=== PATIENT | female | born 1945 | race Caucasian/White ===

== ENCOUNTER 2024-05-23 21:02 | Emergency (ER) | payer MEDICARE, OTHER ==
[2024-05-23] VITALS (8 sets, daily range): BP systolic 155–225; BP diastolic 85–115
[2024-05-23] MEDS ORDERED: HALOPERIDOL LACTATE 5 MG/ML SDV IV ONE (21:30)
[2024-05-23] MEDS ORDERED: SODIUM CHLORIDE 0.9% 1,000 ML IV ONE (21:30)
[2024-05-23 21:33] LABS: BASO% 0.6 % (0-3); EOS% 1.1 % (0-8); HEMATOCRIT 43.8 % (37.0-47.0); HEMOGLOBIN 14.8 g/dl (12.0-16.0); MEAN CELL VOLUME 95.2 fL CALC (80.0-100.0); MEAN CORPUSCULAR HGB 32.2 pG CALC (26.0-32.0); MEAN CORPUSCULAR HGB CONC 33.8 g/dL CAL (32.0-36.0); MONO% 9.1 % (2-13); NEUT# 2.59 thou/uL (2.00-7.15); NEUT% 48.2 % (42-76); RED BLOOD COUNT 4.6 mill/uL (4.20-5.60); RED CELL DISTRI WIDTH 12.3 % (11.5-15.5)
[2024-05-23 21:45] LABS: ALBUMIN 4.2 g/dL (3.2-5.0); ALKALINE PHOSPHATASE 69 u/l (38-126); ANION GAP 13 (6-22 (CALC)); BILIRUBIN, TOTAL 0.6 mg/dL (0.02-1.3); BUN 15 mg/dL (8-23); BUN/CREATININE RATIO 22 (12-20 (CALC)); CARBON DIOXIDE 21 mmol/l (22-30); CHLORIDE 109 mmol/l (95-108); CREATININE 0.7 mg/dL (0.5-1.0); ESTIMATED GFR 90 ML/MIN (>=90 (CALC)); ETHYL ALCOHOL 0 mg/dl (0-30); SGOT/AST 36 u/l (9-36); SODIUM 138 mmol/l (137-146); TOTAL PROTEIN 6.6 g/dL (6.3-8.2)
[2024-05-23] MEDS ORDERED: diazePAM 10 MG/2 ML VIAL IV ONE (22:10)
[2024-05-23] MEDS ORDERED: LABETALOL HCL 20 MG/ 4 ML CARTRG IV ONE (23:20)
[2024-05-24] VITALS (11 sets, daily range): BP systolic 148–231; BP diastolic 76–145
[2024-05-24 00:11] LABS: URINE BILIRUBIN - DIPSTICK Negative (NEGATIVE); URINE BLOOD DIPSTICK Negative (NEGATIVE); URINE COLOR Yellow; URINE GLUCOSE - DIPSTICK Negative (NEGATIVE); URINE KETONE Trace mg/dL (NEGATIVE); URINE LEUK ESTERASE Negative (NEGATIVE); URINE NITRITE - DIPSTICK Negative (Negative); URINE PH 5.5 (4.5-8.0); URINE PROTEIN - DIPSTICK Negative (NEG-TRACE); URINE SPECIFIC GRAVITY 1.025; URINE UROBILINOGEN - DIPSTICK 0.2 E.U./dL (0.2)
[2024-05-24] MEDS ORDERED: LABETALOL HCL 100 MG/20 ML VIAL IV ONE (08:45)
[2024-05-24] MEDS ORDERED: HALOPERIDOL LACTATE 5 MG/ML SDV IV ONE (13:00)
[2024-05-24] MEDS ORDERED: SEROQUEL25 MG PO ×2 (14:24→14:27)
[2024-05-24] MEDS ORDERED: LISINOPRIL10 MG PO ×2 (14:27)
== END 2024-05-24 15:10 | disposition home or self-care (01) ==
LOC: ED 21:02
PROVIDERS: Family Medicine
DX: F03.911 Unspecified dementia, unspecified severity, with agitation (principal); I10 Essential (primary) hypertension; Z20.822 Contact with and (suspected) exposure to COVID-19
CPT/HCPCS: J1630; J1920; J2359; J3360